=== PATIENT | female | born 1930 | race Caucasian/White ===

== ENCOUNTER 2018-10-01 12:55 | Inpatient (IN) | payer MEDICARE ==
[~2018-10-01] VITALS: Ht 167.6 cm; Wt 71.2 kg
[2018-10-01 13:28] LABS: Lymphocytes # (auto) 0.7 uL; Mean Corpuscular Hgb Conc. 34.6 g/dL (32.0-36.0)
[2018-10-01 13:30] LABS: Basophils # (auto) 0.1 uL; Basophils % (auto) 0.5 % (0.0-2.0); Eosinophils # (auto) 0.1 uL; Eosinophils % (auto) 0.6 % (0.0-7.0); Hematocrit 38.2 % (36.0-46.0); Hemoglobin 13.2 g/dL (12.2-16.2); Lymphocytes % (auto) 6.5 % (10.0-50.0); Mean Corpuscular Hemoglobin 34.3 pg (28.0-32.0); Mean Corpuscular Volume 99.1 fL (80.0-100.0); Monocytes % (auto) 9.1 % (0.0-12.0); Neutrophils # (auto) 9.1 uL; Neutrophils % (auto) 83.3 % (37.0-80.0); Platelet Count (auto) 204 10^3/uL (140-450); Red Blood Cells 3.85 10^6/uL (4.0-5.20); Red Cell Distribution Width 15.7 % (11.8-14.3); White Blood Cell 10.9 10^3/uL (4.4-10.8)
[2018-10-01 13:42] LABS: Albumin 3.2 g/dL (3.4-5.0); BUN/Creatinine Ratio 30.2; Calcium 8.3 mg/dL (8.5-10.1); Potassium 4.1 mmol/L (3.5-5.1)
[2018-10-01 13:46] LABS: Bilirubin, Total 1.9 mg/dL (0.2-1.0); Total Protein 6.7 g/dL (6.4-8.2)
[2018-10-01 13:50] LABS: Partial Thromboplastin Time 45.9 sec (23.64-32.05)
[2018-10-01 13:56] LABS: INR 5.73 (0.9-1.15)
[2018-10-01] MEDS ORDERED: LORazepam 0.5 MG TAB PO ONE (15:45)
[2018-10-01 16:03] LABS: Urine Bacteria FEW /hpf (None Seen); Urine Blood TRACE /uL (Negative); Urine Mucus FEW (None Seen); Urine WBC 23 /hpf (0 - 5)
[2018-10-01] MEDS ORDERED: cefTRIAXone 1GM/50ML D5W 50 ML IV ONE (17:15)
[2018-10-01] MEDS ORDERED: NITROGLYCERIN 0.4 MG SL TAB SL PRN (19:00)
[2018-10-01] MEDS ORDERED: MORPHINE SULF INJ 2 MG/ML SYRINGE 1ML IV PRN (19:00)
[2018-10-01] MEDS: LATANOPROST 0.005 % OPTH(EYE) SOL 2.5ML EACHEYE SCH ×2 (22:00→22:21)
[2018-10-01] MEDS: TIMOLOL MALEATE 0.25 % OPTH SOL 5ML EACHEYE SCH (22:44)
[2018-10-01 23:25] VITALS: BP 138/70
[2018-10-02] MEDS ORDERED: BISO5TAB PO (05:02)
[2018-10-02] MEDS ORDERED: TIMO0.5S67 OP (05:02)
[2018-10-02] MEDS ORDERED: LEV50T PO (05:04)
[2018-10-02] MEDS ORDERED: LATA0.0020 OP (05:04)
[2018-10-02 05:35] VITALS: BP 122/60
[2018-10-02] MEDS: LEVOTHYROXINE SODIUM 25 MCG TAB PO SCH (06:08)
[2018-10-02 06:44] LABS: INR 6.12 (0.9-1.15)
[2018-10-02 08:00] VITALS: BP 117/69
[2018-10-02] MEDS: BISOPROLOL HCTZ PO SCH (10:00)
[2018-10-02] MEDS ORDERED: TIMOLOL MALEATE 0.25 % OPTH SOL 5ML EACHEYE SCH (10:00)
[2018-10-02] MEDS: TIMOLOL MALEATE 0.25 % OPTH SOL 5ML EACHEYE SCH ×2 (10:41→21:55)
[2018-10-02] MEDS: cefTRIAXone 1GM/50ML D5W 50 ML IV SCH (10:41)
[2018-10-02] MEDS: amLODIPine BESYLATE 5 MG TAB PO SCH (10:41)
[2018-10-02 12:00] VITALS: BP 126/75
[2018-10-02 17:00] VITALS: BP 131/64
[2018-10-02] MEDS: ACETAMINOPHEN 325 MG TAB PO PRN (18:02)
[2018-10-02 19:37] LABS: Eosinophils # (auto) 0.1 uL
[2018-10-02 19:38] LABS: Basophils # (auto) 0.1 uL; Basophils % (auto) 0.4 % (0.0-2.0); Eosinophils % (auto) 0.7 % (0.0-7.0); Hematocrit 40.6 % (36.0-46.0); Hemoglobin 14.1 g/dL (12.2-16.2); Lymphocytes # (auto) 0.6 uL; Lymphocytes % (auto) 4.5 % (10.0-50.0); Mean Corpuscular Hemoglobin 34.3 pg (28.0-32.0); Mean Corpuscular Hgb Conc. 34.8 g/dL (32.0-36.0); Mean Corpuscular Volume 98.7 fL (80.0-100.0); Monocytes # (auto) 0.9 uL; Monocytes % (auto) 6.7 % (0.0-12.0); Neutrophils # (auto) 11.2 uL; Neutrophils % (auto) 87.7 % (37.0-80.0); Platelet Count (auto) 222 10^3/uL (140-450); Red Blood Cells 4.12 10^6/uL (4.0-5.20); Red Cell Distribution Width 15.4 % (11.8-14.3); White Blood Cell 12.8 10^3/uL (4.4-10.8)
[2018-10-02 19:52] LABS: Albumin 2.9 g/dL (3.4-5.0); Calcium 8.2 mg/dL (8.5-10.1); Potassium 4.1 mmol/L (3.5-5.1)
[2018-10-02 19:54] LABS: BUN/Creatinine Ratio 22.8
[2018-10-02 19:57] LABS: Bilirubin, Total 2.7 mg/dL (0.2-1.0)
[2018-10-02] MEDS: LATANOPROST 0.005 % OPTH(EYE) SOL 2.5ML EACHEYE SCH (21:55)
[2018-10-02] MEDS: MEGESTROL ACETATE 20 MG TAB PO SCH (21:55)
[2018-10-02] MEDS: CARBIDOPA W LEVODOPA 25/100mg TABLET PO SCH (21:55)
[2018-10-02 22:00] VITALS: BP 106/58
[2018-10-03 04:54] VITALS: BP 134/82
[2018-10-03] MEDS: ACETAMINOPHEN 325 MG TAB PO PRN (05:32)
[2018-10-03] MEDS: LEVOTHYROXINE SODIUM 25 MCG TAB PO SCH (06:30)
[2018-10-03 07:43] LABS: INR 3.57 (0.9-1.15)
[2018-10-03 09:00] VITALS: BP 108/64
[2018-10-03] MEDS: BISOPROLOL HCTZ PO SCH (10:00)
[2018-10-03] MEDS: MEGESTROL ACETATE 20 MG TAB PO SCH ×2 (10:12→21:10)
[2018-10-03] MEDS: cefTRIAXone 1GM/50ML D5W 50 ML IV SCH (10:12)
[2018-10-03] MEDS: TIMOLOL MALEATE 0.25 % OPTH SOL 5ML EACHEYE SCH ×2 (10:12→21:10)
[2018-10-03] MEDS: amLODIPine BESYLATE 5 MG TAB PO SCH (10:15)
[2018-10-03] MEDS: CARBIDOPA W LEVODOPA 25/100mg TABLET PO SCH ×2 (10:15→21:10)
[2018-10-03 13:00] VITALS: BP 98/64
[2018-10-03] MEDS ORDERED: FUROSEMIDE 40 MG/4 ML VIAL IV ONE (13:45)
[2018-10-03] MEDS ORDERED: POTASSIUM CHL 20 Meq TABLET PO ONE (13:45)
[2018-10-03] MEDS: LATANOPROST 0.005 % OPTH(EYE) SOL 2.5ML EACHEYE SCH (21:10)
[2018-10-03 21:30] VITALS: BP 105/70
[2018-10-04] VITALS (7 sets, daily range): BP systolic 110–137; BP diastolic 59–77
[2018-10-04] MEDS ORDERED: FUROSEMIDE 20 MG/2 ML VIAL IV ONE (02:30)
[2018-10-04] MEDS: LEVOTHYROXINE SODIUM 25 MCG TAB PO SCH (06:03)
[2018-10-04 06:48] LABS: Basophils # (auto) 0 uL; Basophils % (auto) 0.1 % (0.0-2.0); Eosinophils # (auto) 0.1 uL; Eosinophils % (auto) 0.8 % (0.0-7.0); Hematocrit 39.9 % (36.0-46.0); Hemoglobin 13.7 g/dL (12.2-16.2); Lymphocytes # (auto) 0.6 uL; Lymphocytes % (auto) 4.9 % (10.0-50.0); Mean Corpuscular Hemoglobin 33.9 pg (28.0-32.0); Mean Corpuscular Hgb Conc. 34.3 g/dL (32.0-36.0); Mean Corpuscular Volume 98.9 fL (80.0-100.0); Monocytes # (auto) 0.6 uL; Neutrophils # (auto) 11.5 uL; Neutrophils % (auto) 89.2 % (37.0-80.0); Nucleated Red Blood Cells % 0.1 %; Platelet Count (auto) 233 10^3/uL (140-450); Red Blood Cells 4.04 10^6/uL (4.0-5.20); Red Cell Distribution Width 15.7 % (11.8-14.3); White Blood Cell 12.9 10^3/uL (4.4-10.8)
[2018-10-04 07:07] LABS: INR 2.38 (0.9-1.15); Partial Thromboplastin Time 40.2 sec (23.64-32.05)
[2018-10-04 07:17] LABS: Potassium 3.9 mmol/L (3.5-5.1)
[2018-10-04 07:25] LABS: Albumin 2.6 g/dL (3.4-5.0); Bilirubin, Total 2.5 mg/dL (0.2-1.0); Calcium 8.5 mg/dL (8.5-10.1)
[2018-10-04] MEDS: BISOPROLOL HCTZ PO SCH (09:27)
[2018-10-04] MEDS: MEGESTROL ACETATE 20 MG TAB PO SCH ×2 (09:57→21:11)
[2018-10-04] MEDS: cefTRIAXone 1GM/50ML D5W 50 ML IV SCH (09:57)
[2018-10-04] MEDS: amLODIPine BESYLATE 5 MG TAB PO SCH (09:57)
[2018-10-04] MEDS: CARBIDOPA W LEVODOPA 25/100mg TABLET PO SCH ×2 (09:57→21:11)
[2018-10-04] MEDS: TIMOLOL MALEATE 0.25 % OPTH SOL 5ML EACHEYE SCH ×2 (09:57→21:10)
[2018-10-04] MEDS: ACETAMINOPHEN 325 MG TAB PO PRN (19:21)
[2018-10-04] MEDS: LATANOPROST 0.005 % OPTH(EYE) SOL 2.5ML EACHEYE SCH (21:10)
[2018-10-04] MEDS: methylPREDNISolone SOD SUCC 40 MG/ML VL IV SCH (21:11)
[2018-10-04] MEDS: ALBUTEROL SULF 2.5 MG/0.5ML(0.5%) NEB SOLN NEB SCH (22:05)
[2018-10-05 05:00] VITALS: BP 141/83
[2018-10-05] MEDS: ALBUTEROL SULF 2.5 MG/0.5ML(0.5%) NEB SOLN NEB SCH ×3 (06:00→22:33)
[2018-10-05] MEDS: LEVOTHYROXINE SODIUM 25 MCG TAB PO SCH (06:03)
[2018-10-05] MEDS: methylPREDNISolone SOD SUCC 40 MG/ML VL IV SCH ×3 (06:03→20:46)
[2018-10-05 09:00] VITALS: BP 144/97
[2018-10-05] MEDS: BISOPROLOL HCTZ PO SCH (09:38)
[2018-10-05] MEDS: cefTRIAXone 1GM/50ML D5W 50 ML IV SCH (09:38)
[2018-10-05] MEDS: MEGESTROL ACETATE 20 MG TAB PO SCH ×2 (09:39→20:46)
[2018-10-05] MEDS: CARBIDOPA W LEVODOPA 25/100mg TABLET PO SCH ×2 (09:39→20:46)
[2018-10-05] MEDS: TIMOLOL MALEATE 0.25 % OPTH SOL 5ML EACHEYE SCH ×2 (09:39→20:46)
[2018-10-05] MEDS: amLODIPine BESYLATE 5 MG TAB PO SCH (09:39)
[2018-10-05 13:00] VITALS: BP 116/71
[2018-10-05] MEDS: DOBUTamine 1000MCG/ML 250 ML IV SCH (14:26)
[2018-10-05] MEDS: SILDENAFIL CITRATE 20 MG TAB PO SCH ×2 (14:27→20:46)
[2018-10-05 17:00] VITALS: BP 104/64
[2018-10-05] MEDS ORDERED: FAMOTIDINE 20 MG TAB PO ONE (18:00)
[2018-10-05] MEDS: LATANOPROST 0.005 % OPTH(EYE) SOL 2.5ML EACHEYE SCH (20:45)
[2018-10-05 21:30] VITALS: BP 111/66
[2018-10-06] MEDS ORDERED: FUROSEMIDE 40 MG/4 ML VIAL IV ONE
[2018-10-06] MEDS: DOBUTamine 1000MCG/ML 250 ML IV SCH ×2 (00:59→11:35)
[2018-10-06] MEDS: PIPERACILLIN-TAZO 4.5GM 100 ML IV SCH ×3 (00:59→16:10)
[2018-10-06 05:00] VITALS: BP 102/50
[2018-10-06] MEDS: ALBUTEROL SULF 2.5 MG/0.5ML(0.5%) NEB SOLN NEB SCH ×3 (06:00→22:40)
[2018-10-06] MEDS: LEVOTHYROXINE SODIUM 25 MCG TAB PO SCH (06:17)
[2018-10-06] MEDS: methylPREDNISolone SOD SUCC 40 MG/ML VL IV SCH ×3 (06:17→20:46)
[2018-10-06] MEDS: SILDENAFIL CITRATE 20 MG TAB PO SCH ×3 (08:54→20:55)
[2018-10-06] MEDS: amLODIPine BESYLATE 5 MG TAB PO SCH (10:00)
[2018-10-06] MEDS: BISOPROLOL HCTZ PO SCH (10:00)
[2018-10-06] MEDS: FUROSEMIDE 40 MG/4 ML VIAL IV SCH (10:00)
[2018-10-06] MEDS: FAMOTIDINE 20 MG TAB PO SCH ×2 (10:37→20:55)
[2018-10-06] MEDS: TIMOLOL MALEATE 0.25 % OPTH SOL 5ML EACHEYE SCH ×2 (10:37→21:12)
[2018-10-06] MEDS: POTASSIUM EFFERVESENT TAB 25 MEQ GT SCH (10:37)
[2018-10-06] MEDS: MEGESTROL ACETATE 20 MG TAB PO SCH ×2 (10:37→20:56)
[2018-10-06] MEDS: CARBIDOPA W LEVODOPA 25/100mg TABLET PO SCH ×2 (10:38→20:57)
[2018-10-06] MEDS: ACETAMINOPHEN 325 MG TAB PO PRN (14:00)
[2018-10-06 18:10] VITALS: BP 99/58
[2018-10-06] MEDS: LATANOPROST 0.005 % OPTH(EYE) SOL 2.5ML EACHEYE SCH (21:12)
[2018-10-06 22:00] VITALS: BP 103/55
[2018-10-07] MEDS: PIPERACILLIN-TAZO 4.5GM 100 ML IV SCH ×3 (00:26→17:45)
[2018-10-07] MEDS: DOBUTamine 1000MCG/ML 250 ML IV SCH ×2 (00:33→13:59)
[2018-10-07] MEDS: ACETAMINOPHEN 325 MG TAB PO PRN ×2 (03:05→21:10)
[2018-10-07 05:00] VITALS: BP 123/70
[2018-10-07] MEDS: methylPREDNISolone SOD SUCC 40 MG/ML VL IV SCH ×3 (06:02→21:06)
[2018-10-07] MEDS: ALBUTEROL SULF 2.5 MG/0.5ML(0.5%) NEB SOLN NEB SCH ×3 (06:06→21:36)
[2018-10-07 06:43] LABS: Basophils # (auto) 0 uL; Eosinophils # (auto) 0 uL; Hemoglobin 12.8 g/dL (12.2-16.2); Lymphocytes # (auto) 0.6 uL; Monocytes # (auto) 0.6 uL; Neutrophils % (auto) 89.9 % (37.0-80.0)
[2018-10-07 06:47] LABS: Hematocrit 37.6 % (36.0-46.0); Lymphocytes % (auto) 5.1 % (10.0-50.0); Mean Corpuscular Hemoglobin 33.9 pg (28.0-32.0); Mean Corpuscular Volume 99.7 fL (80.0-100.0); Neutrophils # (auto) 10.9 uL; Platelet Count (auto) 202 10^3/uL (140-450); Red Blood Cells 3.77 10^6/uL (4.0-5.20); Red Cell Distribution Width 15.2 % (11.8-14.3); White Blood Cell 12.1 10^3/uL (4.4-10.8)
[2018-10-07 07:02] LABS: Albumin 2.4 g/dL (3.4-5.0); Calcium 8.3 mg/dL (8.5-10.1); Potassium 4.2 mmol/L (3.5-5.1)
[2018-10-07 07:06] LABS: Bilirubin, Total 1.9 mg/dL (0.2-1.0); Total Protein 6.6 g/dL (6.4-8.2)
[2018-10-07] MEDS: LEVOTHYROXINE SODIUM 25 MCG TAB PO SCH (07:07)
[2018-10-07] MEDS: POTASSIUM EFFERVESENT TAB 25 MEQ GT SCH (08:48)
[2018-10-07] MEDS: FAMOTIDINE 20 MG TAB PO SCH ×2 (08:49→21:09)
[2018-10-07] MEDS: MEGESTROL ACETATE 20 MG TAB PO SCH ×2 (08:49→21:06)
[2018-10-07] MEDS: SILDENAFIL CITRATE 20 MG TAB PO SCH ×3 (08:49→21:10)
[2018-10-07] MEDS: CARBIDOPA W LEVODOPA 25/100mg TABLET PO SCH ×2 (08:49→22:00)
[2018-10-07] MEDS: amLODIPine BESYLATE 5 MG TAB PO SCH (08:49)
[2018-10-07] MEDS: TIMOLOL MALEATE 0.25 % OPTH SOL 5ML EACHEYE SCH ×2 (08:50→21:08)
[2018-10-07] MEDS: BISOPROLOL HCTZ PO SCH (08:50)
[2018-10-07] MEDS: FUROSEMIDE 40 MG/4 ML VIAL IV SCH (08:50)
[2018-10-07 09:00] VITALS: BP 126/54
[2018-10-07 13:00] VITALS: BP 94/63
[2018-10-07 17:00] VITALS: BP 100/60
[2018-10-07 17:17] VITALS: BP 94/63
[2018-10-07] MEDS ORDERED: CARBIDOPA W LEVODOPA 25/100mg TABLET PO ONE (18:30)
[2018-10-07] MEDS: LATANOPROST 0.005 % OPTH(EYE) SOL 2.5ML EACHEYE SCH (21:12)
[2018-10-07] MEDS: DOCUSATE SOD 100 MG CAP PO SCH (21:13)
[2018-10-07 21:30] VITALS: BP 103/54
[2018-10-08] MEDS: DOBUTamine 1000MCG/ML 250 ML IV SCH ×3 (00:48→20:11)
[2018-10-08] MEDS: PIPERACILLIN-TAZO 4.5GM 100 ML IV SCH ×3 (00:48→16:53)
[2018-10-08 05:00] VITALS: BP 117/64
[2018-10-08] MEDS: CARBIDOPA W LEVODOPA 25/100mg TABLET PO SCH ×5 (06:04→22:11)
[2018-10-08] MEDS: LEVOTHYROXINE SODIUM 25 MCG TAB PO SCH (06:04)
[2018-10-08] MEDS: methylPREDNISolone SOD SUCC 40 MG/ML VL IV SCH ×3 (06:04→22:11)
[2018-10-08] MEDS: ALBUTEROL SULF 2.5 MG/0.5ML(0.5%) NEB SOLN NEB SCH ×3 (06:12→22:21)
[2018-10-08] MEDS: SILDENAFIL CITRATE 20 MG TAB PO SCH ×3 (08:40→20:13)
[2018-10-08 09:00] VITALS: BP 106/59
[2018-10-08] MEDS: BISOPROLOL HCTZ PO SCH (10:00)
[2018-10-08] MEDS: FUROSEMIDE 40 MG/4 ML VIAL IV SCH (10:30)
[2018-10-08] MEDS: DOCUSATE SOD 100 MG CAP PO SCH ×2 (10:31→20:13)
[2018-10-08] MEDS: POTASSIUM EFFERVESENT TAB 25 MEQ GT SCH (10:31)
[2018-10-08] MEDS: MEGESTROL ACETATE 20 MG TAB PO SCH ×2 (10:32→20:13)
[2018-10-08] MEDS: TIMOLOL MALEATE 0.25 % OPTH SOL 5ML EACHEYE SCH ×2 (10:32→20:14)
[2018-10-08] MEDS: FAMOTIDINE 20 MG TAB PO SCH ×2 (10:32→20:13)
[2018-10-08] MEDS: amLODIPine BESYLATE 5 MG TAB PO SCH (11:31)
[2018-10-08 13:00] VITALS: BP 98/62
[2018-10-08] MEDS: FUROSEMIDE INJECTION 250 MG in D5W 5% 225 ML IV SCH (16:00)
[2018-10-08] MEDS ORDERED: FUROSEMIDE INJECTION 250 MG in D5W 5% 225 ML IV SCH (16:00)
[2018-10-08] MEDS ORDERED: POTASSIUM CHL 20 Meq TABLET PO ONE (16:00)
[2018-10-08] MEDS ORDERED: FUROSEMIDE 40 MG/4 ML VIAL IV ONE (16:00)
[2018-10-08 17:00] VITALS: BP 104/64
[2018-10-08] MEDS ORDERED: ENOXAPARIN SOD 80 MG/0.8ML SYRINGE SC ONE (17:45)
[2018-10-08 18:45] LABS: BUN/Creatinine Ratio 29.7; Potassium 4.2 mmol/L (3.5-5.1)
[2018-10-08 20:05] VITALS: BP 107/60
[2018-10-08] MEDS: LATANOPROST 0.005 % OPTH(EYE) SOL 2.5ML EACHEYE SCH (20:14)
[2018-10-09] MEDS: PIPERACILLIN-TAZO 4.5GM 100 ML IV SCH ×4 (00:04→23:33)
[2018-10-09] MEDS: ALBUTEROL SULF 2.5 MG/0.5ML(0.5%) NEB SOLN NEB SCH ×3 (05:55→22:25)
[2018-10-09 06:05] VITALS: BP 113/66
[2018-10-09] MEDS: methylPREDNISolone SOD SUCC 40 MG/ML VL IV SCH ×3 (06:27→21:50)
[2018-10-09] MEDS: CARBIDOPA W LEVODOPA 25/100mg TABLET PO SCH ×5 (06:27→21:51)
[2018-10-09] MEDS: LEVOTHYROXINE SODIUM 25 MCG TAB PO SCH (06:27)
[2018-10-09] MEDS: DOBUTamine 1000MCG/ML 250 ML IV SCH ×2 (06:54→18:04)
[2018-10-09 09:00] VITALS: BP 105/54
[2018-10-09] MEDS: POTASSIUM EFFERVESENT TAB 25 MEQ GT SCH (09:31)
[2018-10-09] MEDS: TIMOLOL MALEATE 0.25 % OPTH SOL 5ML EACHEYE SCH ×2 (09:31→21:53)
[2018-10-09] MEDS: SILDENAFIL CITRATE 20 MG TAB PO SCH ×3 (09:31→20:45)
[2018-10-09] MEDS: MEGESTROL ACETATE 20 MG TAB PO SCH ×2 (09:32→21:51)
[2018-10-09] MEDS: DOCUSATE SOD 100 MG CAP PO SCH ×2 (09:32→21:50)
[2018-10-09] MEDS: FAMOTIDINE 20 MG TAB PO SCH ×2 (09:33→21:51)
[2018-10-09] MEDS: BISOPROLOL HCTZ PO SCH (10:00)
[2018-10-09] MEDS: amLODIPine BESYLATE 5 MG TAB PO SCH (10:00)
[2018-10-09 10:57] LABS: INR 2.7 (0.9-1.15)
[2018-10-09 13:00] VITALS: BP 99/49
[2018-10-09] MEDS: FUROSEMIDE INJECTION 250 MG in D5W 5% 225 ML IV SCH (16:15)
[2018-10-09 17:00] VITALS: BP 104/57
[2018-10-09] MEDS ORDERED: FLUCONAZOLE 200MG/100ML 100 ML IV SCH (18:00)
[2018-10-09] MEDS: Ensure Enlive Strawberry 8oz Bottle PO SCH (18:06)
[2018-10-09] MEDS: FLUCONAZOLE 200MG/100ML 100 ML IV SCH (20:45)
[2018-10-09] MEDS: LATANOPROST 0.005 % OPTH(EYE) SOL 2.5ML EACHEYE SCH (21:52)
[2018-10-09 22:00] VITALS: BP 93/55
[2018-10-10] MEDS: DOBUTamine 1000MCG/ML 250 ML IV SCH ×2 (04:38→16:39)
[2018-10-10 05:00] VITALS: BP 116/67
[2018-10-10] MEDS: ALBUTEROL SULF 2.5 MG/0.5ML(0.5%) NEB SOLN NEB SCH ×3 (06:16→22:13)
[2018-10-10] MEDS: CARBIDOPA W LEVODOPA 25/100mg TABLET PO SCH ×5 (06:17→22:20)
[2018-10-10] MEDS: methylPREDNISolone SOD SUCC 40 MG/ML VL IV SCH ×3 (06:17→22:19)
[2018-10-10] MEDS: LEVOTHYROXINE SODIUM 25 MCG TAB PO SCH (06:17)
[2018-10-10] MEDS: PIPERACILLIN-TAZO 4.5GM 100 ML IV SCH ×2 (08:05→16:14)
[2018-10-10] MEDS: Ensure Enlive Strawberry 8oz Bottle PO SCH ×3 (08:05→18:00)
[2018-10-10] MEDS: SILDENAFIL CITRATE 20 MG TAB PO SCH ×3 (08:05→20:20)
[2018-10-10] MEDS: amLODIPine BESYLATE 5 MG TAB PO SCH (10:00)
[2018-10-10] MEDS: BISOPROLOL HCTZ PO SCH (10:00)
[2018-10-10] MEDS: POTASSIUM EFFERVESENT TAB 25 MEQ GT SCH (10:01)
[2018-10-10] MEDS: FAMOTIDINE 20 MG TAB PO SCH ×2 (10:01→22:20)
[2018-10-10] MEDS: MEGESTROL ACETATE 20 MG TAB PO SCH ×2 (10:01→22:19)
[2018-10-10] MEDS: DOCUSATE SOD 100 MG CAP PO SCH ×2 (10:01→22:19)
[2018-10-10] MEDS: TIMOLOL MALEATE 0.25 % OPTH SOL 5ML EACHEYE SCH ×2 (10:02→22:00)
[2018-10-10] MEDS: FUROSEMIDE INJECTION 250 MG in D5W 5% 225 ML IV SCH (16:00)
[2018-10-10 17:22] VITALS: BP 114/63
[2018-10-10] MEDS: FLUCONAZOLE 200MG/100ML 100 ML IV SCH (20:20)
[2018-10-10 20:29] VITALS: BP 114/63
[2018-10-10 22:00] VITALS: BP 113/63
[2018-10-10] MEDS: LATANOPROST 0.005 % OPTH(EYE) SOL 2.5ML EACHEYE SCH (22:00)
[2018-10-11] VITALS (8 sets, daily range): BP systolic 95–125; BP diastolic 50–76
[2018-10-11] MEDS: PIPERACILLIN-TAZO 4.5GM 100 ML IV SCH ×3 (00:46→16:04)
[2018-10-11] MEDS: DOBUTamine 1000MCG/ML 250 ML IV SCH ×2 (03:28→14:03)
[2018-10-11] MEDS: ALBUTEROL SULF 2.5 MG/0.5ML(0.5%) NEB SOLN NEB SCH ×3 (06:07→22:04)
[2018-10-11 06:09] LABS: Basophils # (auto) 0 uL; Basophils % (auto) 0.1 % (0.0-2.0); Eosinophils # (auto) 0 uL; Hematocrit 41.4 % (36.0-46.0); Hemoglobin 14.1 g/dL (12.2-16.2); Lymphocytes # (auto) 0.9 uL; Lymphocytes % (auto) 4.9 % (10.0-50.0); Mean Corpuscular Hemoglobin 33.5 pg (28.0-32.0); Mean Corpuscular Hgb Conc. 34.1 g/dL (32.0-36.0); Mean Corpuscular Volume 98.3 fL (80.0-100.0); Monocytes # (auto) 0.5 uL; Monocytes % (auto) 2.9 % (0.0-12.0); Neutrophils # (auto) 17.3 uL; Neutrophils % (auto) 92.1 % (37.0-80.0); Platelet Count (auto) 243 10^3/uL (140-450); Red Blood Cells 4.21 10^6/uL (4.0-5.20); White Blood Cell 18.8 10^3/uL (4.4-10.8)
[2018-10-11 06:18] LABS: INR 1.59 (0.9-1.15); Partial Thromboplastin Time 27.3 sec (23.64-32.05)
[2018-10-11 06:24] LABS: Albumin 2.6 g/dL (3.4-5.0); Potassium 3.2 mmol/L (3.5-5.1)
[2018-10-11 06:27] LABS: BUN/Creatinine Ratio 33.3; Bilirubin, Total 2.4 mg/dL (0.2-1.0); Total Protein 6.6 g/dL (6.4-8.2)
[2018-10-11] MEDS: CARBIDOPA W LEVODOPA 25/100mg TABLET PO SCH ×5 (06:36→21:33)
[2018-10-11] MEDS: methylPREDNISolone SOD SUCC 40 MG/ML VL IV SCH ×3 (06:36→21:33)
[2018-10-11] MEDS: LEVOTHYROXINE SODIUM 25 MCG TAB PO SCH (06:37)
[2018-10-11] MEDS: Ensure Enlive Strawberry 8oz Bottle PO SCH ×3 (09:03→18:31)
[2018-10-11] MEDS: SILDENAFIL CITRATE 20 MG TAB PO SCH ×3 (09:03→19:56)
[2018-10-11] MEDS: DOCUSATE SOD 100 MG CAP PO SCH ×2 (09:44→21:33)
[2018-10-11] MEDS: FAMOTIDINE 20 MG TAB PO SCH ×2 (09:44→21:33)
[2018-10-11] MEDS: POTASSIUM EFFERVESENT TAB 25 MEQ GT SCH (09:44)
[2018-10-11] MEDS: TIMOLOL MALEATE 0.25 % OPTH SOL 5ML EACHEYE SCH ×2 (09:44→21:32)
[2018-10-11] MEDS: MEGESTROL ACETATE 20 MG TAB PO SCH ×2 (09:44→21:33)
[2018-10-11] MEDS: BISOPROLOL HCTZ PO SCH (09:54)
[2018-10-11] MEDS: amLODIPine BESYLATE 5 MG TAB PO SCH (09:54)
[2018-10-11] MEDS ORDERED: ALBUTEROL SULF 2.5 MG/0.5ML(0.5%) NEB SOLN NEB PRN (10:30)
[2018-10-11] MEDS: FUROSEMIDE INJECTION 250 MG in D5W 5% 225 ML IV SCH (16:04)
[2018-10-11] MEDS: FLUCONAZOLE 200MG/100ML 100 ML IV SCH (19:56)
[2018-10-11] MEDS: LATANOPROST 0.005 % OPTH(EYE) SOL 2.5ML EACHEYE SCH (21:33)
[2018-10-12] MEDS: PIPERACILLIN-TAZO 4.5GM 100 ML IV SCH ×3 (00:15→16:00)
[2018-10-12] MEDS: DOBUTamine 1000MCG/ML 250 ML IV SCH ×2 (01:31→12:45)
[2018-10-12 05:00] VITALS: BP 138/66
[2018-10-12] MEDS: ALBUTEROL SULF 2.5 MG/0.5ML(0.5%) NEB SOLN NEB SCH (06:08)
[2018-10-12] MEDS: methylPREDNISolone SOD SUCC 40 MG/ML VL IV SCH ×2 (06:22→14:00)
[2018-10-12] MEDS: CARBIDOPA W LEVODOPA 25/100mg TABLET PO SCH ×4 (06:23→18:00)
[2018-10-12] MEDS: LEVOTHYROXINE SODIUM 25 MCG TAB PO SCH (06:24)
[2018-10-12] MEDS ORDERED: FUROSEMIDE INJECTION 250 MG in D5W 5% 225 ML IV SCH (06:45)
[2018-10-12] MEDS: SILDENAFIL CITRATE 20 MG TAB PO SCH ×2 (07:55→14:00)
[2018-10-12] MEDS: Ensure Enlive Strawberry 8oz Bottle PO SCH ×3 (08:00→18:00)
[2018-10-12] MEDS: amLODIPine BESYLATE 5 MG TAB PO SCH (10:00)
[2018-10-12] MEDS: MEGESTROL ACETATE 20 MG TAB PO SCH (10:00)
[2018-10-12] MEDS: POTASSIUM EFFERVESENT TAB 25 MEQ GT SCH (10:00)
[2018-10-12] MEDS: FAMOTIDINE 20 MG TAB PO SCH (10:00)
[2018-10-12] MEDS: DOCUSATE SOD 100 MG CAP PO SCH (10:00)
[2018-10-12] MEDS: BISOPROLOL HCTZ PO SCH (10:00)
[2018-10-12] MEDS: TIMOLOL MALEATE 0.25 % OPTH SOL 5ML EACHEYE SCH (10:00)
== END 2018-10-12 18:00 | disposition expired | DRG 871 ==
LOC: ER 12:55 → EDBD 12:55 → TELE 12:56 → TELE-CENTR 23:15 → TELE-WESTW 10-10 18:18
PROVIDERS: ADMIT Internal Medicine Cardiovascular Disease; ATTEND Internal Medicine Cardiovascular Disease
PROC: 5A09357 Assistance with Respiratory Ventilation, Less than 24 Consecutive Hours, Continuous Positive Airway Pressure (ICD-10-PCS; principal; 2018-10-05)
PROC: 5A09357 Assistance with Respiratory Ventilation, Less than 24 Consecutive Hours, Continuous Positive Airway Pressure (ICD-10-PCS; 2018-10-06)
PROC: 5A09357 Assistance with Respiratory Ventilation, Less than 24 Consecutive Hours, Continuous Positive Airway Pressure (ICD-10-PCS; 2018-10-07)
PROC: 5A09357 Assistance with Respiratory Ventilation, Less than 24 Consecutive Hours, Continuous Positive Airway Pressure (ICD-10-PCS; 2018-10-08)
PROC: 5A09357 Assistance with Respiratory Ventilation, Less than 24 Consecutive Hours, Continuous Positive Airway Pressure (ICD-10-PCS; 2018-10-09)
PROC: 5A09357 Assistance with Respiratory Ventilation, Less than 24 Consecutive Hours, Continuous Positive Airway Pressure (ICD-10-PCS; 2018-10-10)
PROC: 5A09357 Assistance with Respiratory Ventilation, Less than 24 Consecutive Hours, Continuous Positive Airway Pressure (ICD-10-PCS; 2018-10-11)
PROC: 5A09357 Assistance with Respiratory Ventilation, Less than 24 Consecutive Hours, Continuous Positive Airway Pressure (ICD-10-PCS; 2018-10-12)
DX: A41.9 Sepsis, unspecified organism (principal); J96.21 Acute and chronic respiratory failure with hypoxia; N39.0 Urinary tract infection, site not specified; E87.1 Hypo-osmolality and hyponatremia; R64 Cachexia; R79.89 Other specified abnormal findings of blood chemistry; T45.515A Adverse effect of anticoagulants, initial encounter; I07.1 Rheumatic tricuspid insufficiency; I11.0 Hypertensive heart disease with heart failure; I50.82 Biventricular heart failure; I48.2 Chronic atrial fibrillation; Z66 Do not resuscitate; Z51.5 Encounter for palliative care; C44.91 Basal cell carcinoma of skin, unspecified; G25.81 Restless legs syndrome; W18.39XA Other fall on same level, initial encounter; Y93.89 Activity, other specified; Y92.091 Bathroom in other non-institutional residence as the place of occurrence of the external cause; Y99.8 Other external cause status; Z82.5 Family history of asthma and other chronic lower respiratory diseases; Z83.3 Family history of diabetes mellitus; Z92.21 Personal history of antineoplastic chemotherapy; Z68.25 Body mass index [BMI] 25.0-25.9, adult
CPT/HCPCS: 36415; 36600; 71045; 80048; 80053; 81001; 82805; 83880; 84484; 85025; 85610; 85730; 86850; 86900; 86901; 87070; 87086; 87205; 93005; 93306; 94640; 94660; 94762; 96365; 97110; 97163; 97530; G0378; J0696; J1450; J2543; J7060